=== PATIENT | male | born 1950 | race Caucasian/White ===

== ENCOUNTER 2016-08-12 16:09 | Emergency (ER) | payer BC, MEDICAID ==
[~2016-08-12] VITALS: Ht 193 cm; Wt 124.3 kg
[~2016-08-12 16:09] MED LIST: AMOXICILLIN500 MG ORAL; AZITHROMYCIN250 MG ORAL; METHADONE HCL5 MG PO; ROBITUSSIN COU118 M4 PO
[2016-08-12] MEDS ORDERED: Albuterol ud Inhalation ONE (16:13)
[2016-08-12] MEDS ORDERED: Ipratropium 0.02% Inh Soln 2.5ml UD ONE (16:13)
[2016-08-12] MEDS ORDERED: Solu-MEDROL 125mg Inj IVP ONE (16:15)
[2016-08-12 16:52] LABS: BASOPHILS % (AUTO) 0.7 % (0.0-2.0); EOSINOPHILS % (AUTO) 2.2 % (0.0-3.0); LYMPHOCYTES % (AUTO) 19.8 % (20.0-45.0); MEAN CORPUSCULAR HEMOGLOBIN 32.6 PG (27.0-31.0); MEAN CORPUSCULAR HGB CONC 35.4 G/DL (32.0-36.0); MEAN CORPUSCULAR VOLUME 92 FL (80-99); MEAN PLATELET VOLUME 11.5 FL (6.5-10.1); MONOCYTES % (AUTO) 10.1 % (1.0-10.0); NEUTROPHILS % (AUTO) 67.2 % (45.0-75.0); PLATELET COUNT 105 K/UL (150-450); RED BLOOD COUNT 4.63 M/UL (4.70-6.10); RED CELL DISTRIBUTION WIDTH 12.6 % (11.6-14.8); WHITE BLOOD COUNT 8.8 K/UL (4.8-10.8)
[2016-08-12 17:01] VITALS: BP 147/71
[2016-08-12] MEDS: Albuterol ud Inhalation HHN SCH ×2 (17:02→17:03)
[2016-08-12] MEDS: Ipratropium 0.02% Inh Soln 2.5ml UD HHN SCH ×2 (17:02→17:03)
[2016-08-12 17:04] LABS: ALANINE AMINOTRANSFERASE 61 U/L (3-41); ANION GAP 13 (5-15); ASPARTATE AMINO TRANSFERASE 50 U/L (5-40); CALCIUM 9.5 mg/dL (8.6-10.2); CARBON DIOXIDE 28 mEQ/L (20-30); CHLORIDE 93 mEQ/L (98-107); CREATININE 0.8 mg/dL (0.7-1.2); GLOMERULAR FILTRATION RATE > 60 mL/min (>60); HEMOLYSIS 4; POTASSIUM 4.3 mEQ/L (3.4-4.9); SODIUM 134 mEQ/L (135-145); TOTAL PROTEIN 7.9 g/dL (6.6-8.7)
[2016-08-12 17:16] LABS: CKMB 2.5 ng/mL (< 6.7)
[2016-08-12 17:17] LABS: TROPONIN I < 0.30 ng/mL (<=0.30)
[2016-08-12 17:24] LABS: APPEARANCE,URINE CLEAR; KETONES,URINE NEGATIVE (NEGATIVE); LEUKOCYTE ESTERASE ,URINE NEGATIVE (NEGATIVE); NITRITE,URINE NEGATIVE (NEGATIVE); PH,URINE 7 (4.5-8.0); PROTEIN,URINE NEGATIVE (NEGATIVE); UROBILINOGEN,URINE NORMAL MG/DL (0.0-1.0)
[2016-08-12 17:37] LABS: AMORPHOUS SEDIMENT,UR FEW /LPF; BACTERIA,URINE FEW /HPF; WBC,URINE 0-2 /HPF (0 - 0)
[2016-08-12 18:01] VITALS: BP 128/71
[2016-08-12 18:02] VITALS: BP 128/71
[2016-08-12] MEDS ORDERED: PREDNISONE20 MG ORAL (18:04)
[2016-08-12] MEDS ORDERED: ALBUTEROL SULF8.5 GM INH (18:04)
[2016-08-12] MEDS ORDERED: AMOXICILLIN500 MG ORAL (18:04)
--- NOTE | 2016-08-12 19:40 | Emergency Room Report ---
History of Present Illness General Chief Complaint: Dyspnea/Respdistress Source: Patient Present Illness HPI 66-year-old male presents ED complaining of shortness of breath. No history of COPD. States the last 2 days he's had increased productive sputum and increase shortness of breath. Inhaler is not helping. Denies any chest pain. No shortness of breath at rest. Denies sick contacts or recent travel. No other aggravating or relieving factors. Denies any other associated symptoms Allergies: Coded Allergies: No Known Allergies (Unverified , 01/04/16) Patient History Past Medical History: COPD Past Surgical History: none Pertinent Family History: none Social History: Reports: smoking, Denies: alcohol use, drug use Immunizations: UTD Reviewed Nursing Documentation: PMH: Agreed, PSxH: Agreed Nursing Documentation-PMH Past Medical History: No History, Except For Hx COPD: Yes Hx Cancer: Yes - SKin cancer Review of Systems All Other Systems: negative except mentioned in HPI Physical Exam Vital Signs Date Time Temp Pulse Resp B/P Pulse Ox O2 Delivery O2 Flow Rate FiO2 08/12/16 16:13 101.1 92 28 147/71 93 Room Air 08/12/16 17:05 21 Sp02 EP Interpretation: reviewed, normal General Appearance: no apparent distress, alert, GCS 15, non-toxic Head: normocephalic Eyes: bilateral eye PERRL, bilateral eye normal inspection ENT: normal ENT inspection Neck: full range of motion Respiratory: accessory muscle use, wheezing Cardiovascular #1: regular rate, rhythm, no edema Gastrointestinal: normal bowel sounds, non tender, soft, non-distended, no guarding, no rebound Rectal: deferred Genitourinary: no CVA tenderness Musculoskeletal: normal inspection Neurologic: alert, oriented x3, responsive, motor strength/tone normal, sensory intact, speech normal Psychiatric: normal inspection Skin: normal inspection Lymphatic: normal inspection Medical Decision Making Diagnostic Impression: Primary Impression: COPD (chronic obstructive pulmonary disease) Qualified Codes: J44.9 - Chronic obstructive pulmonary disease, unspecified ER Course Hospital Course 66-year-old male presents to ED complaining of SOB, wheezing. Differential diagnoses include: URI, bronchitis, asthma/COPD, pneumonia Clinical course Patient placed on stretcher. After initial history, physical exam reveals an elderly male in no acute distress. Bilateral TM unremarkable. No pharyngeal erythema. No tonsillar exudates. No lymphadenopathy. lungs clear. I ordered labs, IV fluids, nebs, solumedrol, CXR Labs reviewed-no leukocytosis noted, hemoglobin/hematocrit stable, electrolytes okay Chest x-ray unremarkable EKG - NSR, RBBB, no ischemic changes On reassessment patient states he feels better. Patient can be safely discharged to home with outpatient therapy. Patient agrees with plan. Diagnosis - COPD Stable and discharged home with prescriptions for prednisone, albuterol, amoxicillin. Instructed to followup with PMD. Return to ED if symptoms recur or worsen Labs Test 08/12/16 16:20 08/12/16 16:40 White Blood Count 8.8 K/UL (4.8-10.8) Red Blood Count 4.63 M/UL (4.70-6.10) Hemoglobin 15.1 G/DL (14.2-18.0) Hematocrit 42.6 % (42.0-52.0) Mean Corpuscular Volume 92 FL (80-99) Mean Corpuscular Hemoglobin 32.6 PG (27.0-31.0) Mean Corpuscular Hemoglobin Concent 35.4 G/DL (32.0-36.0) Red Cell Distribution Width 12.6 % (11.6-14.8) Platelet Count 105 K/UL (150-450) Mean Platelet Volume 11.5 FL (6.5-10.1) Neutrophils (%) (Auto) 67.2 % (45.0-75.0) Lymphocytes (%) (Auto) 19.8 % (20.0-45.0) Monocytes (%) (Auto) 10.1 % (1.0-10.0) Eosinophils (%) (Auto) 2.2 % (0.0-3.0) Basophils (%) (Auto) 0.7 % (0.0-2.0) Sodium Level 134 mEQ/L (135-145) Potassium Level 4.3 mEQ/L (3.4-4.9) Chloride Level 93 mEQ/L (98-107) Carbon Dioxide Level 28 mEQ/L (20-30) Anion Gap 13 (5-15) Blood Urea Nitrogen 11 mg/dL (7-23) Creatinine 0.8 mg/dL (0.7-1.2) Estimat Glomerular Filtration Rate > 60 mL/min (>60) Glucose Level 107 mg/dL (74-106) Lactic Acid Level 0.70 mmol/L (0.66-2.22) Calcium Level 9.5 mg/dL (8.6-10.2) Total Bilirubin 0.7 mg/dL (0.0-1.2) Aspartate Amino Transf (AST/SGOT) 50 U/L (5-40) Alanine Aminotransferase (ALT/SGPT) 61 U/L (3-41) Alkaline Phosphatase 91 U/L (40-129) Total Creatine Kinase 142 U/L (38-174) Creatine Kinase MB 2.5 ng/mL (< 6.7) Creatine Kinase MB Relative Index 1.7 Troponin I < 0.30 ng/mL (<=0.30) Pro-B-Type Natriuretic Peptide 50 pg/mL (0-125) Total Protein 7.9 g/dL (6.6-8.7) Albumin 4.1 g/dL (3.5-5.2) Globulin 3.8 g/dL Albumin/Globulin Ratio 1.0 (1.0-2.7) Urine Color Pale yellow Urine Appearance Clear Urine pH 7 (4.5-8.0) Urine Specific [place] 1.010 (1.005-1.035) Urine Protein Negative (NEGATIVE) Urine Glucose (UA) Negative (NEGATIVE) Urine Ketones Negative (NEGATIVE) Urine Occult Blood 3+ (NEGATIVE) Urine Nitrite Negative (NEGATIVE) Urine Bilirubin Negative (NEGATIVE) Urine Urobilinogen Normal MG/DL (0.0-1.0) Urine Leukocyte Esterase Negative (NEGATIVE) Urine RBC 2-4 /HPF (0 - 0) Urine WBC 0-2 /HPF (0 - 0) Urine Squamous Epithelial Cells None /LPF (NONE/OCC) Urine Amorphous Sediment Few /LPF (NONE) Urine Bacteria Few /HPF (NONE) EKG Diagnostic Results Rate: normal Rhythm: NSR ST Segments: other - RBBB ASA given to the pt in ED: No Rhythm Strip Diag. Results EP Interpretation: yes Rhythm: NSR, no PVC's, no ectopy Chest X-Ray Diagnostic Results EP Interpretation: No Findings: no consolidation, no effusion, no pneumothorax, no acute cardiopulmonary disease Number of Views: 1 Last Vital Signs Date Time Temp Pulse Resp B/P Pulse Ox O2 Delivery O2 Flow Rate FiO2 08/12/16 18:02 101.1 100 21 128/71 94 Room Air 21 Status: improved Disposition: HOME, SELF-CARE Condition: Stable Scripts Amoxicillin* (AMOXIL*) 500 Mg Capsule 500 MG ORAL THREE TIMES A DAY, #21 CAP Prov: ARLENE MCCLELLAN M.D. 08/12/16 Prednisone* (PREDNISONE*) 20 Mg Tablet 40 MG ORAL DAILY, #10 TAB Prov: ARLENE MCCLELLAN M.D. 08/12/16 Albuterol Sulfate* (ALBUTEROL SULFATE MDI*) 8.5 Gm Hfa.aer.ad 2 PUFF INH Q4H Y for cough/wheezing, #1 EA 0 Refills Prov: ARLENE MCCLELLAN M.D. 08/12/16 Referrals: [facility]ERR[facility] (PCP) Patient Instructions: Chronic Obstructive Pulmonary Disease Exacerbation ARLENE MCCLELLAN M.D. Aug 12, 2016 19:40
--- NOTE | 2016-08-13 08:33 | Diagnostic Imaging Report ---
Indication: SOB Technique: One view of the chest Comparison: none Findings: Lungs and pleural spaces are clear. Heart size is normal. Aorta is tortuous and calcified. Previously demonstrated left basilar consolidation is not evident currently Impression: No acute process
--- NOTE | 2016-08-13 18:34 | Cardiology Report ---
APPROVED REPORT EKG Measurement Heart [id number] Normal sinus rhythm Right bundle branch block Abnormal ECG
== END 2016-08-12 18:08 | disposition home or self-care (01) ==
LOC: EMR 16:50
DX: J44.9 Chronic obstructive pulmonary disease, unspecified (principal); Z85.828 Personal history of other malignant neoplasm of skin
CPT/HCPCS: 36415; 71010; 80053; 81003; 82550; 82553; 83605; 83880; 84484; 85025; 87040; 87181; 93005; 94640; 96360; 96374; 99284; J2930; J7040

== ENCOUNTER 2018-10-04 10:34 | Emergency (ER) | payer OTHER, MEDICAID ==
[~2018-10-04] VITALS: Ht 193 cm; Wt 77.1 kg
[~2018-10-04 10:34] MED LIST changes: +ALBUTEROL SULF8.5 GM INH; +PREDNISONE20 MG ORAL
[2018-10-04 10:52] VITALS: BP 135/82
--- NOTE | 2018-10-04 11:43 | NUR ---
ED Nurse Note: Bilateral ears irrigated by EMT at this time.
[2018-10-04 12:21] VITALS: BP 135/82
--- NOTE | 2018-10-04 12:22 | NUR ---
ER DISCHARGE NOTE: Patient is cleared to be discharged per ERMD, pt is aox4, on room air, with stable vital signs. pt was given dc instructions. pt is able to ambulate with steady gait. pt took all belongings.
--- NOTE | 2018-10-04 13:09 | Emergency Room Report ---
History of Present Illness General Chief Complaint: Earache Source: Patient Present Illness HPI Patient presents emergency department today complaining of bilateral occluded ears canal. He states that he has been putting eardrops without much improvement. States that he cannot hear because of the occlusion. Denies any other injuries. Symptoms noted to be mild to moderate has been going for a few days. No other modifying factors. No other associated signs and symptoms. No other complaints were noted. Allergies: Coded Allergies: No Known Allergies (Unverified , 01/04/16) Patient History Past Medical History: COPD Social History: Denies: smoking, alcohol use, drug use Reviewed Nursing Documentation: PMH: Agreed; PSxH: Agreed Nursing Documentation-PMH Past Medical History: No History, Except For Hx COPD: Yes Hx Cancer: Yes - SKin cancer Review of Systems All Other Systems: negative except mentioned in HPI Physical Exam Vital Signs Date Time Temp Pulse Resp B/P (MAP) Pulse Ox O2 Delivery O2 Flow Rate FiO2 10/04/18 10:43 97.5 82 16 135/82 (99) 96 Room Air Sp02 EP Interpretation: reviewed, normal General Appearance: normal inspection, well appearing, no apparent distress, alert Head: atraumatic Eyes: bilateral eye normal inspection ENT: hearing grossly normal, normal voice, other - Occluded ear canal Neck: normal inspection, full range of motion, supple, no bony tend Respiratory: normal inspection, lungs clear, normal breath sounds, no respiratory distress, no retraction, no wheezing Cardiovascular #1: regular rate, rhythm, no edema Gastrointestinal: normal inspection, normal bowel sounds, non tender, soft, no guarding, no hernia Genitourinary: no CVA tenderness Musculoskeletal: normal inspection, back normal, normal range of motion Neurologic: normal inspection, alert, responsive, speech normal Psychiatric: normal inspection, judgement/insight normal, mood/affect normal Skin: normal inspection, normal color, no rash Medical Decision Making Diagnostic Impression: Primary Impression: Cerumen impaction ER Course Patient presents emergency department today complaining of occluded ear canal. Differential considerations include otitis media, otitis externa, cerumen impaction. Patient's exam is consistent with cerumen impaction. Patient's ear canal was irrigated with fluid. Large amount of cerumen was removed. Patient noted improvement in hearing. The cerumen on the left appears to have loosened up the cerumen on the right appears to have been removed. Given the patient's feeling better and that most of the cerumen appears removed I feel the patient can be treated as an outpatient. Recommend using eardrops as an outpatient recommend outpatient follow-up with ENT. Patient is advised to follow up with primary doctor in 2-3 days and return the emergency room for any worsening symptoms and as needed. Last Vital Signs Date Time Temp Pulse Resp B/P (MAP) Pulse Ox O2 Delivery O2 Flow Rate FiO2 10/04/18 12:21 97.5 80 16 135/82 96 Room Air Status: improved Disposition: HOME, SELF-CARE Condition: Stable Patient Instructions: Cerumen Impaction Jacob Hicks MD Oct 04, 2018 13:09
== END 2018-10-04 12:20 | disposition home or self-care (01) ==
LOC: EMR 11:15
DX: H61.23 Impacted cerumen, bilateral (principal); J44.9 Chronic obstructive pulmonary disease, unspecified; Z85.828 Personal history of other malignant neoplasm of skin
CPT/HCPCS: 99283

== ENCOUNTER 2018-10-09 14:03 | Emergency (ER) | payer OTHER, MEDICAID ==
[~2018-10-09] VITALS: Ht 188 cm; Wt 81.6 kg
[2018-10-09] MEDS ORDERED: Ipratropium 0.02% Inh Soln 2.5ml UD HHN ONE (14:45)
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
[2018-10-09] MEDS: Albuterol ud Inhalation HHN SCH ×2 (15:06→15:08)
--- NOTE | 2018-10-09 15:23 | NUR ---
ED Nurse Note: PT WALKED IN DUE TO SOB X 3 YRS. HX OF COPD AND ADMITS TO STILL SMOKE CIGARETTES. SATS 92% IN ROOM AIR. PT IS AAO X4, AMBULATORY AND LUNGS ARE CLEAR WHEN AUSCULTATED. NOTED LEFT EYEBROW OPEN WOUND AND PT STATES ONE OF HIS DOCTORS DX ITS A SKIN CANCER.
[2018-10-09 15:25] LABS: BASOPHILS % (AUTO) 0.6 % (0.0-2.0); EOSINOPHILS % (AUTO) 0.6 % (0.0-3.0); HEMOGLOBIN 12.1 G/DL (14.2-18.0); LYMPHOCYTES % (AUTO) 14.4 % (20.0-45.0); MEAN CORPUSCULAR VOLUME 84 FL (80-99); MONOCYTES % (AUTO) 11.2 % (1.0-10.0); NEUTROPHILS % (AUTO) 73.2 % (45.0-75.0); PLATELET COUNT 158 K/UL (150-450); RED BLOOD COUNT 4.15 M/UL (4.70-6.10); RED CELL DISTRIBUTION WIDTH 14.8 % (11.6-14.8); WHITE BLOOD COUNT 10.7 K/UL (4.8-10.8)
[2018-10-09 15:40] LABS: ANION GAP 7 mmol/L (5-15); BLOOD UREA NITROGEN 18 mg/dL (7-18); CALCIUM 9.2 MG/DL (8.5-10.1); CARBON DIOXIDE 30 MMOL/L (21-32); CHLORIDE 99 MMOL/L (98-107); CREATININE 0.9 MG/DL (0.55-1.30); POTASSIUM 4.2 MMOL/L (3.5-5.1); SODIUM 135 MMOL/L (136-145)
--- NOTE | 2018-10-09 15:44 | NUR ---
ED Nurse Note: COLLECTED BLOOD/URINE THEN SENT.
[2018-10-09 15:51] LABS: ALANINE AMINOTRANSFERASE 58 U/L (12-78); ALBUMIN 3.7 G/DL (3.4-5.0); ALBUMIN/GLOBULIN RATIO 0.9 (1.0-2.7); ALKALINE PHOSPHATASE 82 U/L (46-116); ASPARTATE AMINO TRANSFERASE 47 U/L (15-37); BILIRUBIN,TOTAL 0.3 MG/DL (0.2-1.0); CREATINE KINASE 70 U/L (26-308)
--- NOTE | 2018-10-09 16:11 | NUR ---
ED Nurse Note: DR BARNARD AT THE BED SIDE.
[2018-10-09] MEDS ORDERED: ALBUTEROL SULF8.5 GM INH (16:15)
[2018-10-09 16:24] VITALS: BP 120/61
[2018-10-09 16:29] VITALS: BP 135/77
--- NOTE | 2018-10-09 16:29 | NUR ---
ER DISCHARGE NOTE: Patient is cleared to be discharged per ERMD, pt is aox4, on room air, with stable vital signs. pt was given dc and prescription instructions, pt was able to verbalize understanding, pt id band and iv site removed without complications. pt is able to ambulate with steady gait. pt took all belongings.
[2018-10-09 16:42] LABS: APPEARANCE,URINE CLEAR; BILIRUBIN, URINE NEGATIVE (NEGATIVE); COLOR,URINE YELLOW; GLUCOSE, URINE (UA) NEGATIVE (NEGATIVE); KETONES,URINE NEGATIVE (NEGATIVE); LEUKOCYTE ESTERASE ,URINE NEGATIVE (NEGATIVE); NITRITE,URINE NEGATIVE (NEGATIVE); PH,URINE 6 (4.5-8.0); PROTEIN,URINE NEGATIVE (NEGATIVE); UROBILINOGEN,URINE 1 MG/DL (0.0-1.0)
--- NOTE | 2018-10-11 13:16 | Diagnostic Imaging Report ---
Indication: Dyspnea Technique: One view of the chest Comparison: 08/12/2016 Findings: There is atelectasis at the left lung base. Lungs and pleural spaces otherwise clear. Heart size is upper limits normal. No significant change Impression: . Basilar atelectasis No acute process
== END 2018-10-09 16:29 | disposition home or self-care (01) ==
LOC: EMR 15:20
DX: J44.1 Chronic obstructive pulmonary disease with (acute) exacerbation (principal); Z85.828 Personal history of other malignant neoplasm of skin; F17.200 Nicotine dependence, unspecified, uncomplicated
CPT/HCPCS: 36415; 71045; 80053; 81003; 82550; 83605; 83880; 84484; 85025; 85610; 85730; 93005; 94640; 94664; 96360; 99284

== ENCOUNTER 2018-11-25 16:04 | Emergency (ER) | payer OTHER, MEDICAID ==
[~2018-11-25] VITALS: Ht 193 cm; Wt 72.6 kg
[2018-11-25 16:15] VITALS: BP 160/79
--- NOTE | 2018-11-25 16:15 | NUR ---
ED Nurse Note: Patient walked into ED wanting to get medication refills of albuterol and states that he would like medication for his mucus. patient complains of no pain at tis time . patient is alert and oriented x4, ambulatory with a steady gait, VSS
--- NOTE | 2018-11-25 17:12 | Emergency Room Report ---
History of Present Illness General Chief Complaint: Upper Respiratory Illness Source: Patient Present Illness HPI 68-year-old male presents to the emergency department complaining of having wheezing and some shortness of breath after running out of his inhaler. He denies chest pain or chest tightness. Patient reports coughing up more mucus than usual. Patient with history of COPD from chronic smoking. Patient states that he for the most part quit however he does take a puff from a cigarette here and there. Denies fevers or chills denies swelling of the lower extremities denies dyspnea. Reports that he did smoke today. Denies dizziness, palpitations, LOC, AMS or GONZALEZ. Denies cardiac hx. Allergies: Coded Allergies: No Known Allergies (Unverified , 11/25/18) Patient History Past Medical History: see triage record Past Surgical History: none Pertinent Family History: none Social History: Reports: smoking Immunizations: UTD Reviewed Nursing Documentation: PMH: Agreed; PSxH: Agreed Nursing Documentation-PMH Past Medical History: No History, Except For Review of Systems All Other Systems: negative except mentioned in HPI Physical Exam Vital Signs Date Time Temp Pulse Resp B/P (MAP) Pulse Ox O2 Delivery O2 Flow Rate FiO2 11/25/18 16:12 97.9 65 17 160/79 (106) 96 Sp02 EP Interpretation: reviewed, normal General Appearance: no apparent distress, alert, GCS 15, non-toxic Head: normocephalic, atraumatic Eyes: bilateral eye normal inspection, bilateral eye PERRL ENT: hearing grossly normal, normal voice Neck: full range of motion Respiratory: chest non-tender, lungs clear, normal breath sounds, no rhonchi, no respiratory distress, no accessory muscle use, speaking full sentences, wheezing - scant expiratory wheezes bilaterally. Cardiovascular #1: regular rate, rhythm, no edema, normal capillary refill Musculoskeletal: back normal, gait/station normal, normal range of motion, non- tender Neurologic: alert, oriented x3, responsive, motor strength/tone normal, sensory intact, normal gait, speech normal, grossly normal Psychiatric: judgement/insight normal Skin: no rash, normal color, normal inspection Lymphatic: no adenopathy Medical Decision Making PA Attestation Dr. Shirley Is my supervising Physician whom patient management has been discussed with. Diagnostic Impression: Primary Impression: Encounter for medication refill ER Course 68-year-old male presents to the emergency department complaining of having wheezing and some shortness of breath after running out of his inhaler. He denies chest pain or chest tightness. Patient reports coughing up more mucus than usual. Patient with history of COPD from chronic smoking. Patient states that he for the most part quit however he does take a puff from a cigarette here and there. Denies fevers or chills denies swelling of the lower extremities denies dyspnea. Reports that he did smoke today. Denies dizziness, palpitations, LOC, AMS or GONZALEZ. Denies cardiac hx. Ddx considered but are not limited to: drug seeking, OD, OPD exacerbation, CHF, NE/PE. Just to name a few Vital signs: are WNL, pt. is afebrile H&PE are most consistent with need for medication refill. ORDERS: none required at this time, the diagnosis is clinical ED INTERVENTIONS: None required at this time. -I do not identify an emergent condition at this time. With current presentation , pt. is stable for close outpatient follow up and conservative treatment. D/ w pt. to return promptly to ED with worsening or new symptoms.- Pt. verbalizes' understanding and agreement with proposed treatment plan.proposed treatment plan. DISCHARGE: At this time pt. is stable for d/c to home. Will provide printed patient care instructions, and any necessary prescriptions. Care plan and follow up instructions have been discussed with the patient prior to discharge. Last Vital Signs Date Time Temp Pulse Resp B/P (MAP) Pulse Ox O2 Delivery O2 Flow Rate FiO2 11/25/18 16:12 97.9 65 17 160/79 (106) 96 Disposition: HOME, SELF-CARE Condition: Stable Scripts Guaifenesin (Mucinex) 1,200 Mg Tab.er.12h 1200 MG PO Q12HR for 10 Days, #20 TAB Prov: Cherrie Elam 11/25/18 Albuterol Sulfate* (ALBUTEROL SULFATE MDI*) 8.5 Gm Hfa.aer.ad 2 PUFF INH Q3H, #1 INH 0 Refills Prov: Cherrie Elam 11/25/18 Patient Instructions: Chronic Obstructive Pulmonary Disease, [id number], Metered Dose Inhaler (No Spacer Used) Additional Instructions: Take medications as directed. Follow up with a Primary Care Provider in 3-5 days, even if your symptoms have resolved. Return sooner to ED if new symptoms occur, or current symptoms become worse. - Please note that this Emergency Department Report was dictated using [employer] of clinical education technology software, occasionally this can lead to erroneous entry secondary to interpretation by the dictation equipment. Cherrie Elam Nov 25, 2018 17:12
[2018-11-25] MEDS ORDERED: MUCINEX1200 MG PO (17:13)
[2018-11-25] MEDS ORDERED: ALBUTEROL SULF8.5 GM INH (17:13)
[2018-11-25 17:15] VITALS: BP 152/72
--- NOTE | 2018-11-25 17:15 | NUR ---
ER DISCHARGE NOTE: Patient is cleared to be discharged per ERMD, pt is aox4, on room air, with stable vital signs. pt was given dc and prescription instructions, pt was able to verbalize understanding, pt id band removed without complications. pt is able to ambulate with steady gait. pt took all belongings.
== END 2018-11-25 17:20 | disposition home or self-care (01) ==
LOC: MERGE 17:18 → EMR 17:18
DX: R06.2 Wheezing (principal); R06.02 Shortness of breath; Z76.0 Encounter for issue of repeat prescription; J44.9 Chronic obstructive pulmonary disease, unspecified; F17.200 Nicotine dependence, unspecified, uncomplicated
CPT/HCPCS: 99282

== ENCOUNTER 2018-12-27 16:17 | Emergency (ER) | payer OTHER, MEDICAID ==
[~2018-12-27] VITALS: Ht 193 cm; Wt 77.1 kg
[~2018-12-27 16:17] MED LIST changes: +MUCINEX1200 MG PO
--- NOTE | 2018-12-27 16:19 | NUR ---
ED Nurse Note:pt not in wr, will be back in
[2018-12-27] MEDS ORDERED: CEPHALEXIN500 MG ORAL (16:45)
[2018-12-27 16:58] VITALS: BP 124/77
--- NOTE | 2018-12-27 17:05 | NUR ---
ED Nurse Note: jose eval done awaiting nsg orders will monitor.
[2018-12-27] MEDS ORDERED: BACTRIM DS TAB1 EAC1 ORAL (17:07)
[2018-12-27] MEDS ORDERED: CEPHALEXIN500 M1 ORAL (17:07)
--- NOTE | 2018-12-27 17:08 | Emergency Room Report ---
History of Present Illness General Chief Complaint: Edema Source: Patient Present Illness HPI 68-year-old male history of cellulitis presents with left leg swelling, and redness, no fever no chills no chest pain or shortness of breath, patient feels a slight ache in the left leg when he walks around, severity is mild, patient states he had cellulitis in the past, currently has a prescription for Keflex that he just got today, he wanted to have this checked out. Symptoms are intermittent Allergies: Coded Allergies: No Known Allergies (Unverified , 01/04/16) Patient History Past Medical History: see triage record Reviewed Nursing Documentation: PMH: Agreed; PSxH: Agreed Nursing Documentation-PMH Past Medical History: No Stated History Hx COPD: Yes Hx Cancer: Yes - SKin cancer Review of Systems All Other Systems: negative except mentioned in HPI Physical Exam Vital Signs Date Time Temp Pulse Resp B/P (MAP) Pulse Ox O2 Delivery O2 Flow Rate FiO2 12/27/18 16:37 98.8 80 20 124/77 (93) 95 Room Air Sp02 EP Interpretation: reviewed, normal General Appearance: well appearing, no apparent distress, alert Head: normocephalic, atraumatic Eyes: bilateral eye PERRL, bilateral eye EOMI ENT: uvula midline, moist mucus membranes Neck: supple, thyroid normal, supple/symm/no masses Respiratory: lungs clear, no respiratory distress, no retraction, no accessory muscle use Cardiovascular #1: normal peripheral pulses, regular rate, rhythm, no edema, no gallop, no murmur Gastrointestinal: non tender, soft, no guarding, no rebound Musculoskeletal: normal inspection Neurologic: alert, oriented x3 Psychiatric: mood/affect normal Skin: warm/dry, other - Left leg erythema site marked Medical Decision Making Diagnostic Impression: Primary Impression: Cellulitis and abscess of left leg ER Course Patient with cellulitis will provide patient with double coverage, Keflex and Bactrim, counseled patient that it may take up to 48 hours for to improve strict return precautions were given Last Vital Signs Date Time Temp Pulse Resp B/P (MAP) Pulse Ox O2 Delivery O2 Flow Rate FiO2 12/27/18 16:58 98.8 20 124/77 95 Room Air 12/27/18 16:58 80 Disposition: HOME, SELF-CARE Condition: Stable Scripts Trimethoprim/Sulfamethoxazole 160/800* (BACTRIM DS TABLET*) 1 Each Tablet 1 TAB ORAL Q12H, #20 TAB 0 Refills Prov: Milton Parr MD 12/27/18 Cephalexin* (CEPHALEXIN*) 500 Mg Tablet 500 MG ORAL EVERY 6 HOURS, #40 CAP Prov: Milton Parr MD 12/27/18 Referrals: [facility] Patient Instructions: Cellulitis, [id number] Additional Instructions: The patient was provided with discharge instructions, notified to follow-up with a primary care doctor and or specialist in the next 24-48 hours, and to return to the ED if they have worsening of their symptoms. Please note that this report is being documented using [employer] technology. This can lead to erroneous entry secondary to incorrect interpretation by the dictating instrument. PLEASE OBSERVE SITE MARKING FOR 48 HOURS IF IT WORSENS PLEASE RETURN TO ED Milton Parr MD Dec 27, 2018 17:08
[2018-12-27 17:18] VITALS: BP 124/77
--- NOTE | 2018-12-27 17:19 | NUR ---
ED Nurse Note: no nsg orders pt given aci and script verbalized understanding ambulated out of er with steady gait and all belongings. ID removed.
== END 2018-12-27 17:18 | disposition home or self-care (01) ==
LOC: EMR 17:05
DX: L03.116 Cellulitis of left lower limb (principal); L02.416 Cutaneous abscess of left lower limb; J44.9 Chronic obstructive pulmonary disease, unspecified; Z85.828 Personal history of other malignant neoplasm of skin
CPT/HCPCS: 99282

== ENCOUNTER 2019-07-11 13:22 | Emergency (ER) | payer OTHER, MEDICAID ==
[~2019-07-11] VITALS: Ht 185.4 cm; Wt 72.6 kg
[~2019-07-11 13:22] MED LIST changes: +BACTRIM DS TAB1 EAC1 ORAL; +CEPHALEXIN500 M1 ORAL; +CEPHALEXIN500 MG ORAL
--- NOTE | 2019-07-11 14:00 | NUR ---
ED Nurse Note: Patient walked in to Er c/o swollen legs x 1 week. VSS on triage, on RA. Placed on room.
[2019-07-11] MEDS ORDERED: Lidocaine 1% MPF 10mg/ml 5ml INJ ONE (14:15)
--- NOTE | 2019-07-11 15:28 | Emergency Room Report ---
History of Present Illness General Chief Complaint: Lower Extremity Injury Source: Patient Present Illness HPI 69-year-old male with history of chronic lower extremity edema and cellulitis here complaining of worsening pain and warmth to touch. Denies any fever and chills, recent travel, cough and congestion. Has not been seen by primary doctor. Was last seen here for the same complaint and given antibiotics. Sitting comfortably with stable vital signs. Denies any recent travel. Denies tingling and numbness. COVID-19 risk:Travel to affect: No Has patient experienced wesley: No Allergies: Coded Allergies: No Known Allergies (Unverified , 01/04/16) Patient History Past Medical History: see triage record Past Surgical History: none Pertinent Family History: none Immunizations: UTD Reviewed Nursing Documentation: PMH: Agreed; PSxH: Agreed Nursing Documentation-PMH Past Medical History: No Stated History Hx COPD: Yes Hx Cancer: Yes - SKin cancer Review of Systems All Other Systems: negative except mentioned in HPI Physical Exam Vital Signs Date Time Temp Pulse Resp B/P (MAP) Pulse Ox O2 Delivery O2 Flow Rate FiO2 07/11/19 13:48 98.4 88 16 144/87 (106) 98 Room Air Sp02 EP Interpretation: reviewed, normal General Appearance: no apparent distress, alert, GCS 15, non-toxic Head: normocephalic, atraumatic Eyes: bilateral eye normal inspection, bilateral eye PERRL ENT: hearing grossly normal, normal pharynx, no angioedema, normal voice Neck: full range of motion, supple/symm/no masses Respiratory: chest non-tender, lungs clear, normal breath sounds, no rhonchi, no wheezing, speaking full sentences Cardiovascular #1: regular rate, rhythm, no edema, no murmur Cardiovascular #2: 2+ dorsalis pedis (R), 2+ dorsalis pedis (L) Gastrointestinal: normal bowel sounds, non tender, soft, non-distended, no guarding, no rebound Rectal: deferred Musculoskeletal: back normal, swelling - Bilateral lower extremities looking cellulitic Neurologic: alert, motor strength/tone normal, oriented x3, sensory intact, responsive, speech normal Psychiatric: judgement/insight normal, memory normal, mood/affect normal, no suicidal/homicidal ideation Skin: no rash Lymphatic: no adenopathy Medical Decision Making PA Attestation All my diagnosis and treatment plans were reviewed ad discussed with my supervising physician Dr. Osullivan Diagnostic Impression: Primary Impression: Chronic cellulitis ER Course 69-year-old male with history of chronic lower extremity edema and cellulitis here complaining of worsening pain and warmth to touch. Denies any fever and chills, recent travel, cough and congestion. Has not been seen by primary doctor. Was last seen here for the same complaint and given antibiotics. Sitting comfortably with stable vital signs. Denies any recent travel. Denies tingling and numbness. Denies chest pain shortness of breath Ddx considered but are not limited to : Cellulitis, DVT, superficial infection, abscess Vital signs: are WNL, pt. is afebrile H&PE are most consistent with: Cellulitis ORDERS: Bilateral lower extremity x-ray, Keflex, Bactrim DS, Motrin ED INTERVENTIONS: Rocephin IM, Lasix p.o. DISCHARGE: At this time pt. is stable for d/c to home. Will provide printed patient care instructions, and any necessary prescriptions. Care plan and follow up instructions have been discussed with the patient prior to discharge. Follow-up primary care doctor, gave a list of free clinics, take medication as directed, if worsening symptoms return to the emergency room Other X-Ray Diagnostic Results Other X-Ray Diagnostic Results #1: X-Ray ordered: Lower extremity left # of Views/Limited Vs Complete: 2 View Indication: Swelling EP Interpretation: Yes PA Xray: Interpretation reviewed, by supervising MD, and agrees with findings. Interpretation: no dislocation, no soft tissue swelling Impression: No acute disease Electronically Signed by: Abhinav Mims PA-C Other X-Ray Diagnostic Results #2: X-Ray ordered: Right lower extremity # of Views/Limited Vs Complete: 2 View Indication: Swelling EP Interpretation: Yes PA Xray: Interpretation reviewed, by supervising MD, and agrees with findings. Interpretation: no dislocation, no soft tissue swelling, no fractures Impression: No acute disease Electronically Signed by: Abhinav Mims PA-C Last Vital Signs Date Time Temp Pulse Resp B/P (MAP) Pulse Ox O2 Delivery O2 Flow Rate FiO2 07/11/19 13:48 98.4 88 16 144/87 (106) 98 Room Air Disposition: HOME, SELF-CARE Condition: Stable Scripts Ibuprofen* (MOTRIN*) 600 Mg Tablet 600 MG ORAL Q8H PRN for For Pain, #30 TAB 0 Refills Prov: Abhinav Arriaga 07/11/19 Trimethoprim/Sulfamethoxazole 160/800* (BACTRIM DS TABLET*) 1 Each Tablet 1 TAB ORAL TWICE A DAY for 7 Days, #14 TAB Prov: Abhinav Arriaga 07/11/19 Cephalexin* (KEFLEX*) 500 Mg Capsule 500 MG ORAL EVERY 6 HOURS for 7 Days, #28 CAP Prov: Abhinav Arriaga 07/11/19 Patient Instructions: Cellulitis, [id number] Additional Instructions: Take medication as directed, follow-up with primary care provider, increase oral hydration, follow-up with specialist, this is a chronic condition. If worsening symptoms return to the emergency room Abhinav Arriaga Jul 11, 2019 15:27
[2019-07-11] MEDS ORDERED: IBUPROFEN600 MG ORAL (15:30)
[2019-07-11] MEDS ORDERED: BACTRIM DS TAB1 EAC1 ORAL (15:30)
[2019-07-11] MEDS ORDERED: CEPHALEXIN500 MG ORAL (15:30)
--- NOTE | 2019-07-11 15:42 | Diagnostic Imaging Report ---
Indication: Swollen legs x1 week Technique: 2 views of the right tibia and fibula Comparison: none Findings: A stimulator and power pack are demonstrated, with the stimulator leads within the distal tibial medullary space. A is broken off surgical screw is seen within the distal tibia. There are fracture deformities of the distal tibia and fibula. No acute fractures. No dislocations. No osseous erosions Impression: Postsurgical changes and posttraumatic changes, as described No definite acute bony trauma
[2019-07-11 15:50] VITALS: BP 138/84
--- NOTE | 2019-07-11 15:50 | NUR ---
ER DISCHARGE NOTE: Patient is cleared to be discharged per ERMD, pt is aox4, on room air, with stable vital signs. pt was given dc and prescription instructions, pt was able to verbalize understanding, pt id band removed. pt is able to ambulate with steady gait. pt took all belongings.
--- NOTE | 2019-07-11 15:53 | Diagnostic Imaging Report ---
Indication: Pain, trauma Technique: 2 views of the left tibia and fibula Comparison: none Findings: No acute fractures. No dislocations. The joint spaces are preserved. The bones are osteopenic. There are vascular calcifications Impression: No acute process
== END 2019-07-11 15:50 | disposition home or self-care (01) ==
LOC: EMR 15:23
DX: L03.116 Cellulitis of left lower limb (principal); L03.115 Cellulitis of right lower limb; J44.9 Chronic obstructive pulmonary disease, unspecified; Z85.828 Personal history of other malignant neoplasm of skin
CPT/HCPCS: 73590; 96372; 96374; 99284; J0696

== ENCOUNTER 2019-08-09 10:28 | Emergency (ER) | payer OTHER, MEDICAID ==
[~2019-08-09] VITALS: Ht 180.3 cm; Wt 79.4 kg
[~2019-08-09 10:28] MED LIST changes: +IBUPROFEN600 MG ORAL
[2019-08-09 10:56] VITALS: BP 133/70
[2019-08-09] MEDS ORDERED: CEPHALEXIN500 MG ORAL (11:01)
[2019-08-09] MEDS ORDERED: BACTRIM DS TAB1 EAC1 ORAL (11:01)
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
== END 2019-08-09 11:08 | disposition home or self-care (01) ==
LOC: EMR 11:05
DX: Z76.0 Encounter for issue of repeat prescription (principal); S01.80XA Unspecified open wound of other part of head, initial encounter; X58.XXXA Exposure to other specified factors, initial encounter; Y92.9 Unspecified place or not applicable; R23.4 Changes in skin texture; J44.9 Chronic obstructive pulmonary disease, unspecified; Z85.828 Personal history of other malignant neoplasm of skin
CPT/HCPCS: 99282

== ENCOUNTER 2019-12-25 16:15 | Emergency (ER) | payer OTHER, MEDICAID ==
[~2019-12-25] VITALS: Ht 193 cm; Wt 77.1 kg
[2019-12-25 16:35] VITALS: BP 176/106
[2019-12-25] MEDS ORDERED: Lidocaine 1% MPF 10mg/ml 5ml INJ ONE (16:45)
[2019-12-25] MEDS ORDERED: Azithromycin 250mg tab ORAL ONE (16:45)
--- NOTE | 2019-12-25 17:09 | Diagnostic Imaging Report ---
History: SOB Exam: XR CXR 1 VIEW Comparison: 10/09/2018 FINDINGS: The lungs are clear. Pulmonary emphysema and hyperinflation. The cardiac and mediastinal contours are within limits. IMPRESSION: No evidence of acute disease. Pulmonary emphysema and hyperinflation.
[2019-12-25 17:16] LABS: BASOPHILS % (AUTO) 0.6 % (0.0-2.0); EOSINOPHILS % (AUTO) 0.7 % (0.0-3.0); HEMATOCRIT 40.6 % (42.0-52.0); HEMOGLOBIN 13.6 G/DL (14.2-18.0); LYMPHOCYTES % (AUTO) 28.3 % (20.0-45.0); MEAN CORPUSCULAR VOLUME 92 FL (80-99); MONOCYTES % (AUTO) 10.3 % (1.0-10.0); PLATELET COUNT 156 K/UL (150-450); RED BLOOD COUNT 4.41 M/UL (4.70-6.10); RED CELL DISTRIBUTION WIDTH 13.1 % (11.6-14.8)
[2019-12-25 17:30] LABS: ANION GAP 9 mmol/L (5-15); BLOOD UREA NITROGEN 21 mg/dL (7-18); CALCIUM 9.2 MG/DL (8.5-10.1); CARBON DIOXIDE 28 MMOL/L (21-32); CHLORIDE 101 MMOL/L (98-107); CREATININE 1.1 MG/DL (0.55-1.30); POTASSIUM 3.7 MMOL/L (3.5-5.1); SODIUM 138 MMOL/L (136-145)
--- NOTE | 2019-12-25 17:30 | NUR ---
ED Nurse Note: Patient came in to ER from home due to " feeling sick. Patient reports weakness and loss of appetite x 1 week. Patient presented calm, cooperative. Patient AAO x4, VSS at this time, skion is warm to touch. Patient walked in with steady gait, has even non-labored breathing, O2 sat 96% on RA.
[2019-12-25 17:41] LABS: ALANINE AMINOTRANSFERASE 40 U/L (12-78); ALBUMIN 3.7 G/DL (3.4-5.0); ALBUMIN/GLOBULIN RATIO 0.8 (1.0-2.7); ALKALINE PHOSPHATASE 87 U/L (46-116); ASPARTATE AMINO TRANSFERASE 34 U/L (15-37); BILIRUBIN,TOTAL 0.7 MG/DL (0.2-1.0)
[2019-12-25] MEDS ORDERED: ALBUTEROL SULF8.5 G1 INH (18:06)
[2019-12-25] MEDS ORDERED: BACTRIM DS TAB1 EAC1 ORAL (18:06)
[2019-12-25] MEDS ORDERED: CEPHALEXIN500 MG ORAL (18:06)
[2019-12-25 18:22] VITALS: BP 176/106
--- NOTE | 2019-12-25 20:51 | Emergency Room Report ---
History of Present Illness General Chief Complaint: Generalized Weakness Source: Patient Present Illness HPI 69-year-old male presents the ED for evaluation. States he feels "sick". States he has been feeling weak with a episodic shortness of breath. States he has history of COPD. Denies cough. States he has occasional fever. Afebrile in triage. Symptoms been going on and off for several weeks now. No other aggravating relieving factors. 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 COVID-19 Screening: Negative COVID-19 COVID-19 Testing Source: 2 months ago Patient History Past Medical History: COPD, other - melanoma Past Surgical History: none Pertinent Family History: none Social History: Denies: smoking, alcohol use, drug use Immunizations: UTD Reviewed Nursing Documentation: PMH: Agreed; PSxH: Agreed Nursing Documentation-PMH Hx COPD: Yes Hx Cancer: Yes - SKin cancer Review of Systems All Other Systems: negative except mentioned in HPI Physical Exam Vital Signs Date Time Temp Pulse Resp B/P (MAP) Pulse Ox O2 Delivery O2 Flow Rate FiO2 12/24/20 16:22 98.2 64 18 176/106 (129) 94 Room Air Sp02 EP Interpretation: reviewed, normal General Appearance: no apparent distress, alert, GCS 15, non-toxic Head: normocephalic, atraumatic Eyes: bilateral eye normal inspection, bilateral eye PERRL ENT: hearing grossly normal, normal pharynx, no angioedema, normal voice Neck: full range of motion, supple/symm/no masses Respiratory: chest non-tender, lungs clear, normal breath sounds, speaking full sentences Cardiovascular #1: regular rate, rhythm, no edema Cardiovascular #2: 2+ carotid (R), 2+ carotid (L), 2+ radial (R), 2+ radial (L) , 2+ dorsalis pedis (R), 2+ dorsalis pedis (L) Gastrointestinal: normal bowel sounds, non tender, soft, non-distended, no guarding, no rebound Rectal: deferred Genitourinary: normal inspection, no CVA tenderness Musculoskeletal: back normal, normal range of motion, gait/station normal, non- tender Neurologic: alert, motor strength/tone normal, oriented x3, sensory intact, responsive, speech normal Psychiatric: judgement/insight normal, memory normal, mood/affect normal, no suicidal/homicidal ideation Reflexes: 3+ bicep (R), 3+ bicep (L), 3+ tricep (R), 3+ tricep (L), 3+ knee (R) , 3+ knee (L) Skin: 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 Differential diagnoses include: URI, bronchitis, asthma/COPD, pneumonia Clinical course Patient placed on stretcher. After initial history, physical exam reveals an elderly male in no acute distress. Bilateral TM unremarkable. No pharyngeal erythema. No tonsillar exudates. No lymphadenopathy. lungs clear. I ordered labs, EKG, chest x-ray. Labs reviewed-no leukocytosis, hemoglobin/hematocrit stable, electrolytes okay, trop negative EKG - NSR, no acute ischemic changes interpreted by me Chest x-ray hyperinflated lungs And stated that he has been exposed to "venereal disease". Does not know which ones. Was told that he needed antibiotics but states he lost the prescriptions. Given Rocephin and azithromycin in ED. Discussed findings with patient. Will discharge home. does not have a PMD. I will provide referrals. Safe for discharge close outpatient follow-up Diagnosis - exposure to STD, generalized weakness Stable and discharged home. Instructed to followup with PMD. Return to ED if symptoms recur or worsen Laboratory Tests Test 12/25/19 17:00 White Blood Count 8.0 K/UL (4.8-10.8) Red Blood Count 4.41 M/UL (4.70-6.10) L Hemoglobin 13.6 G/DL (14.2-18.0) L Hematocrit 40.6 % (42.0-52.0) L Mean Corpuscular Volume 92 FL (80-99) Mean Corpuscular Hemoglobin 30.8 PG (27.0-31.0) Mean Corpuscular Hemoglobin Concent 33.4 G/DL (32.0-36.0) Red Cell Distribution Width 13.1 % (11.6-14.8) Platelet Count 156 K/UL (150-450) Mean Platelet Volume 9.1 FL (6.5-10.1) Neutrophils (%) (Auto) 60.0 % (45.0-75.0) Lymphocytes (%) (Auto) 28.3 % (20.0-45.0) Monocytes (%) (Auto) 10.3 % (1.0-10.0) H Eosinophils (%) (Auto) 0.7 % (0.0-3.0) Basophils (%) (Auto) 0.6 % (0.0-2.0) Sodium Level 138 MMOL/L (136-145) Potassium Level 3.7 MMOL/L (3.5-5.1) Chloride Level 101 MMOL/L (98-107) Carbon Dioxide Level 28 MMOL/L (21-32) Anion Gap 9 mmol/L (5-15) Blood Urea Nitrogen 21 mg/dL (7-18) H Creatinine 1.1 MG/DL (0.55-1.30) Estimat Glomerular Filtration Rate > 60 mL/min (>60) Glucose Level 94 MG/DL (74-106) Calcium Level 9.2 MG/DL (8.5-10.1) Total Bilirubin 0.7 MG/DL (0.2-1.0) Aspartate Amino Transf (AST/SGOT) 34 U/L (15-37) Alanine Aminotransferase (ALT/SGPT) 40 U/L (12-78) Alkaline Phosphatase 87 U/L (46-116) Troponin I 0.000 ng/mL (0.000-0.056) Pro-B-Type Natriuretic Peptide 233 pg/mL (0-125) H Total Protein 8.1 G/DL (6.4-8.2) Albumin 3.7 G/DL (3.4-5.0) Globulin 4.4 g/dL Albumin/Globulin Ratio 0.8 (1.0-2.7) L EKG Diagnostic Results Rate: normal Rhythm: NSR ST Segments: no acute changes ASA given to the pt in ED: No Rhythm Strip Diag. Results EP Interpretation: yes Rhythm: NSR, no PVC's, no ectopy Chest X-Ray Diagnostic Results Chest X-Ray Diagnostic Results : Chest X-Ray Ordered: Yes # of Views/Limited/Complete: 1 View Indication: Shortness of Breath EP Interpretation: Yes Interpretation: no consolidation, no effusion, no pneumothorax, no acute cardiopulmonary disease Impression: No acute disease Electronically Signed by: Electronically signed by Taj Perera MD Last Vital Signs Date Time Temp Pulse Resp B/P (MAP) Pulse Ox O2 Delivery O2 Flow Rate FiO2 12/25/19 18:22 98.2 18 176/106 94 Room Air 12/25/19 16:35 64 Status: improved Disposition: HOME, SELF-CARE Condition: Stable Scripts Albuterol Sulfate* (Albuterol Sulfate Hfa*) 8.5 Gm Hfa.aer.ad 2 PUFF INH Q6H, #1 INH Prov: Taj Perera MD 12/25/19 Trimethoprim/Sulfamethoxazole 160/800* (BACTRIM DS TABLET*) 1 Each Tablet 1 TAB ORAL TWICE A DAY for 7 Days, #14 TAB Prov: Taj Perera MD 12/25/19 Cephalexin* (KEFLEX*) 500 Mg Capsule 500 MG ORAL EVERY 6 HOURS for 7 Days, #28 CAP Prov: Taj Perera MD 12/25/19 Referrals: NON PHYSICIAN (PCP) [facility] Patient Instructions: Urethritis, Adult Taj Perera MD Dec 25, 2019 20:51
== END 2019-12-25 18:24 | disposition home or self-care (01) ==
LOC: EMR 16:44
DX: R53.1 Weakness (principal); R50.9 Fever, unspecified; R06.02 Shortness of breath; Z20.2 Contact with and (suspected) exposure to infections with a predominantly sexual mode of transmission; J44.9 Chronic obstructive pulmonary disease, unspecified; Z85.820 Personal history of malignant melanoma of skin
CPT/HCPCS: 36415; 71045; 80053; 83880; 84484; 85025; 93005; 96372; 96374; 99284; J0696